=== PATIENT | female | born 1960 | race Two or more races ===

== ENCOUNTER 2016-11-02 08:48 | Day surgery (SDC) | payer OTHER ==
[~2016-11-02] VITALS: Ht 165.1 cm; Wt 85.8 kg
[2016-11-02 09:18] VITALS: Ht 165.1 cm; Wt 85.8 kg
[2016-11-02] MEDS ORDERED: NORVASC PO (09:36)
[2016-11-02] MEDS ORDERED: METFORMIN (09:36)
[2016-11-02] MEDS ORDERED: LISINOPRIL PO (09:36)
[2016-11-02] MEDS ORDERED: NAPROXEN (09:36)
[2016-11-02] MEDS ORDERED: IBUPROFEN (09:36)
[2016-11-02] MEDS ORDERED: LOSARTAN (09:36)
[2016-11-02] MEDS ORDERED: ATORVASTATIN PO (09:36)
[2016-11-02 10:38] VITALS: BP 143/72; PULSE 59; RESP 14
[2016-11-02] MEDS ORDERED: FENTAnyl 50 MCG/ML VIAL ONE (11:23)
[2016-11-02] MEDS ORDERED: MIDAZOLAM 1 MG/ML 2 ML INJ ONE ×2 (11:23)
--- NOTE | 2016-11-03 02:07 | GILP ---
DATE OF PROCEDURE: NAME OF PROCEDURE: Colonoscopy up to cecum and terminal ileum. PREOPERATIVE DIAGNOSIS: Screening colonoscopy to rule out colon polyps. POSTOPERATIVE DIAGNOSES: 1. Moderate degree of diverticulosis, no bleeding noted. 2. Moderate external hemorrhoids, no bleeding. DESCRIPTION OF PROCEDURE: After informed written consent was obtained, the patient was asked to lie on the left lateral side. The patient was given 3 mg Versed and 50 mcg of fentanyl as intravenous anesthesia. When the patient became somnolent, the Olympus video colonoscope was introduced into the rectum. Sc ope was advanced all the way to the cecum and the terminal ileum. Terminal ileum appeared normal. Diverticulosis noted to be scattered all along the colon. They are small in size. No bleeding note d. At this time, endoscope was withdrawn. On the way out, further evaluation was carried out. Min imal internal hemorrhoids noted as well as minimal external hemorrhoids were noted and the procedure was terminated. PLAN: Recommend repeat colonoscopy in 10 years. Dictated By: DEAN FALCON/JUAN DANIEL Conf#: [id number] DID#: [id number] CC: DEAN KHALIL MD; Dr. Cast;*EndCC*
== END 2016-11-02 13:11 | disposition home or self-care (01) ==
LOC: GIL 08:48
PROVIDERS: ATTEND Internal Medicine Gastroenterology
DX: Z12.11 Encounter for screening for malignant neoplasm of colon (principal); K57.90 Diverticulosis of intestine, part unspecified, without perforation or abscess without bleeding; K64.4 Residual hemorrhoidal skin tags; E11.9 Type 2 diabetes mellitus without complications; I10 Essential (primary) hypertension
CPT/HCPCS: 45378; 82962; J2250; J3010

== ENCOUNTER 2019-03-31 07:23 | Day surgery (SDC) | payer OTHER ==
[~2019-03-31] VITALS: Ht 165.1 cm; Wt 85.3 kg
[2019-03-31] VITALS (9 sets, daily range): BP systolic 116–167; BP diastolic 54–91; PULSE 62–74; RESP 12–20; Ht 165.1 cm; Wt 85.3 kg
[~2019-03-31 07:23] MED LIST: ATOR20TA38 PO; ATORVASTATIN PO; CIPROFLOXACIN 0.3% 2.5 ML OPH (PRE-OP) OPER SCH; CPR3OO3.5 LEFT EYE; CYCLOPENTOLATE 1% 2 ML OPH (PRE-OP) OPER SCH; DICL2.5D11 LEFT EYE; DICLOFENAC 0.1% 2.5 ML OPH (PRE-OP) OPER SCH; IBUPROFEN; LISINOPRIL PO; LOSA50TA14 PO; LOSARTAN; METF500T24 PO; METFORMIN; NAPROXEN; NORVASC PO; PHENYLephrine 2.5% 15 ML OPH (PRE-OP) OPER SCH; TETRACAINE 0.5% 4 ML OPH (PRE-OP) OPER SCH; TROPICAMIDE 1% 15 ML OPH (PRE OP) OPER SCH
[2019-03-31] MEDS ORDERED: FENTAnyl 50 MCG/ML VIAL ONE ×2 (09:53)
[2019-03-31] MEDS ORDERED: ONDANSETRON 4 MG INJ ONE (09:54)
[2019-03-31] MEDS ORDERED: LIDOCAINE 1.5%/EPI MPF (SDV) 30 ML VIAL INJ ONE (09:57)
[2019-03-31] MEDS ORDERED: NA HYALURONATE/CHONDROITIN 0.5 ML SYG ONE (10:22)
[2019-03-31] MEDS ORDERED: LIDOCAINE 1%/EPI 30 ML INJ ONE (10:22)
[2019-03-31] MEDS ORDERED: ONDANSETRON 4 MG INJ IV PRN (10:30)
[2019-03-31] MEDS ORDERED: OXYCODONE/ACETAMINOPHEN (5/325) TAB PO PRN ×2 (10:30)
[2019-03-31] MEDS ORDERED: ACETAMINOPHEN 500 MG TAB PO PRN (10:30)
== END 2019-03-31 11:27 | disposition home or self-care (01) ==
LOC: SDS 07:23
PROVIDERS: ATTEND Ophthalmology
DX: H26.9 Unspecified cataract (principal); I10 Essential (primary) hypertension; E11.9 Type 2 diabetes mellitus without complications; E78.5 Hyperlipidemia, unspecified; Z79.84 Long term (current) use of oral hypoglycemic drugs
CPT/HCPCS: 66984; 82962; J2405; J3010; Z7610; V2632